=== PATIENT | female | born 1975 | race Caucasian/White ===

== ENCOUNTER 2017-02-14 09:10 | Emergency (ER) | payer OTHER ==
[~2017-02-14] VITALS: Ht 160 cm; Wt 68.2 kg
[~2017-02-14 09:10] MED LIST: BENADRYL50 MG PO; CELEXA20 MG PO; CIPRO500 MG PO; CITALOPRAM HBR40 MG PO; FLEXERIL5 MG PO; GLUCOVANCE 51 TABLET PO; KEFLEX; LANTUS 10100 UNITS/ SC; LEVEMIR FL100 UNIT/1 SC; MOBIC7.5 MG PO; NAPROSYN500 MG PO; PREDNISONE20 MG PO; TORADOL10 MG PO; ULTRAM50 MG PO; ZANTAC150 MG PO
[2017-02-14 10:05] LABS: HEMATOCRIT 46.6 % (36.0-46.0); MCH 30.2 PG (29.0-34.0); MCHC 33.5 G/DL (30.0-36.0); MCV 90.1 FL (83-99); MEAN PLAT.VOLUME 9.5 uM^3 (9.5-12.4); PLATELET COUNT 291 K/uL (156-360); RBC DIS.WIDTH-CV 13.5 % (11.8-14.6); RBC DIS.WIDTH-SD 45.4 % (39-53); RED BLOOD COUNT 5.17 M/uL (3.80-5.20); WHITE BLOOD COUNT 7.7 K/uL (4.1-10.2)
[2017-02-14 10:14] LABS: CHLORIDE 100 mEq/L (99-109); POTASSIUM 4.6 mEq/L (3.7-5.4); SODIUM 134 mEq/L (136-147)
[2017-02-14 10:17] LABS: ANION GAP 13 MEQ/L (2-14)
[2017-02-14 10:19] LABS: GFR ESTIMATE (CALCULATED) > 59 mL/min/
[2017-02-14 10:20] LABS: UREA NITROGEN (BUN) 12 mg/dL (9-23)
[2017-02-14 10:27] LABS: QUANTITATIVE HCG < 4.0 MIU/ML
[2017-02-14 10:29] LABS: GLUCOSE 456 mg/dL (70-99)
[2017-02-14] MEDS ORDERED: PROVERA,CYCRIN10 MG PO (11:09)
[2017-02-14 11:40] VITALS: BP 132/86
[2017-02-18] MEDS ORDERED: LEVEMIR100 UNIT/2 SC (12:12)
[2017-02-18] MEDS ORDERED: CELEXA40 MG PO (12:14)
== END 2017-02-14 11:41 | disposition home or self-care (01) ==
LOC: EME 09:10
PROVIDERS: Emergency Medicine
DX: N93.9 Abnormal uterine and vaginal bleeding, unspecified (principal); E11.9 Type 2 diabetes mellitus without complications; Z87.442 Personal history of urinary calculi; F17.200 Nicotine dependence, unspecified, uncomplicated
CPT/HCPCS: 80048; 84702; 85027; 86900; 86901; 99281; 99283

== ENCOUNTER → 2017-02-18 | Outpatient (CLI) | payer OTHER ==
[~2017-02-18] MED LIST changes: +CELEXA40 MG PO; +LEVEMIR100 UNIT/2 SC; +PROVERA,CYCRIN10 MG PO
== END | disposition home or self-care (01) ==
LOC: CDC
DX: Z01.810 Encounter for preprocedural cardiovascular examination (principal); R94.31 Abnormal electrocardiogram [ECG] [EKG]
CPT/HCPCS: 93000

== ENCOUNTER 2017-02-20 11:36 | Day surgery (SDC) | payer OTHER ==
[~2017-02-20] VITALS: Ht 160 cm; Wt 68.9 kg
[2017-02-20 12:00] VITALS: BP 119/70
[2017-02-20 12:36] LABS: CHLORIDE 104 mEq/L (99-109); POTASSIUM 4.3 mEq/L (3.7-5.4); SODIUM 136 mEq/L (136-147)
[2017-02-20 12:37] LABS: GLUCOSE 270 mg/dL (70-99)
[2017-02-20 12:39] LABS: ANION GAP 9 MEQ/L (2-14)
[2017-02-20 12:41] LABS: GFR ESTIMATE (CALCULATED) > 59 mL/min/
[2017-02-20 12:42] LABS: UREA NITROGEN (BUN) 13 mg/dL (9-23)
[2017-02-20 12:52] LABS: QUANTITATIVE HCG < 4.0 MIU/ML
[2017-02-20 13:49] LABS: POINT-OF-CARE METER ID UU13113675
[2017-02-20 14:12] VITALS: BP 136/80
[2017-02-20 15:08] VITALS: BP 109/62
== END 2017-02-20 15:15 | disposition home or self-care (01) ==
LOC: SDC
PROVIDERS: Obstetrics & Gynecology Gynecology
PROC: 0UDB8ZX Extraction of Endometrium, Via Natural or Artificial Opening Endoscopic, Diagnostic (ICD-10-PCS; principal; 2017-02-20)
DX: N93.8 Other specified abnormal uterine and vaginal bleeding (principal); N92.0 Excessive and frequent menstruation with regular cycle; N85.4 Malposition of uterus; E11.9 Type 2 diabetes mellitus without complications; F17.200 Nicotine dependence, unspecified, uncomplicated; Z79.4 Long term (current) use of insulin; Z82.49 Family history of ischemic heart disease and other diseases of the circulatory system; Z80.3 Family history of malignant neoplasm of breast; Z83.3 Family history of diabetes mellitus; Z88.6 Allergy status to analgesic agent; Z88.8 Allergy status to other drugs, medicaments and biological substances; Z88.2 Allergy status to sulfonamides
CPT/HCPCS: 80048; 82948; 84702; 88305; J0131; J0330; J2250; J2405; J3010

== ENCOUNTER 2017-04-06 05:50 | Emergency (ER) | payer OTHER ==
[~2017-04-06] VITALS: Ht 160 cm; Wt 73.2 kg
[2017-04-06 06:16] LABS: HEMATOCRIT 40.4 % (36.0-46.0); MCH 29.8 PG (29.0-34.0); MCHC 33.2 G/DL (30.0-36.0); MCV 89.8 FL (83-99); MEAN PLAT.VOLUME 8.9 uM^3 (9.5-12.4); PLATELET COUNT 257 K/uL (156-360); RBC DIS.WIDTH-CV 14.5 % (11.8-14.6); RBC DIS.WIDTH-SD 47.4 % (39-53); WHITE BLOOD COUNT 10.1 K/uL (4.1-10.2)
[2017-04-06 06:27] LABS: CHLORIDE 107 mEq/L (99-109)
[2017-04-06 06:28] LABS: SODIUM 138 mEq/L (136-147)
[2017-04-06 06:29] LABS: GLUCOSE 238 mg/dL (70-99)
[2017-04-06 06:31] LABS: ANION GAP 10 MEQ/L (2-14)
[2017-04-06 06:33] LABS: GFR ESTIMATE (CALCULATED) > 59 mL/min/
[2017-04-06 06:34] LABS: UREA NITROGEN (BUN) 13 mg/dL (9-23)
[2017-04-06 06:43] LABS: ADD MIUA? YES; BILIRUBIN NEGATIVE; BLOOD LARGE; COLOR AMBER ((YELLOW)); GLUCOSE (STRIP) NEGATIVE; KETONES NEGATIVE; LEUKOCYTES LARGE; NITRITE POSITIVE; PROTEIN (STRIP) 100; SPECIFIC GRAVITY 1.019 (1.000-1.030); UROBILINOGEN 0.2 MG/DL (0.2-1.0)
[2017-04-06] MEDS ORDERED: PERCOCET 5/31 TABLET PO (07:21)
[2017-04-06] MEDS ORDERED: ZOFRAN ODT4 MG PO (07:21)
[2017-04-06] MEDS ORDERED: CIPRO500 MG PO (07:21)
[2017-04-06 08:00] LABS: BACTERIA 4+ /HPF; EPITHELIAL CELLS 1+ /HPF; MUCUS NONE SEEN /LPF; RED BLOOD CELLS 40-50 /HPF (0-5); UCUL ADDED? YES; WHITE BLOOD CELLS TNTC /HPF (0-5)
[2017-04-06 08:59] VITALS: BP 125/79
== END 2017-04-06 09:01 | disposition home or self-care (01) ==
LOC: EME 05:50
DX: N20.1 Calculus of ureter (principal); N39.0 Urinary tract infection, site not specified; E11.9 Type 2 diabetes mellitus without complications; Z87.442 Personal history of urinary calculi; F17.200 Nicotine dependence, unspecified, uncomplicated
CPT/HCPCS: 74176; 80048; 81003; 85027; 87077; 87086; 87186; 99281; 99285; J0696; J2270; J2405; J7030; J7050

== ENCOUNTER 2017-04-12 21:06 | Emergency (ER) | payer OTHER ==
[~2017-04-12] VITALS: Ht 160 cm; Wt 72.1 kg
[~2017-04-12 21:06] MED LIST changes: +PERCOCET 5/31 TABLET PO; +ZOFRAN ODT4 MG PO
[2017-04-12 21:56] LABS: ADD MIUA? YES; BILIRUBIN NEGATIVE; BLOOD LARGE; COLOR YELLOW ((YELLOW)); GLUCOSE (STRIP) >=500; KETONES NEGATIVE; LEUKOCYTES TRACE; NITRITE NEGATIVE; PROTEIN (STRIP) 30; SPECIFIC GRAVITY 1.027 (1.000-1.030); UROBILINOGEN 0.2 MG/DL (0.2-1.0)
[2017-04-12 22:08] LABS: HEMATOCRIT 41.9 % (36.0-46.0); MCH 29.8 PG (29.0-34.0); MCHC 33.2 G/DL (30.0-36.0); MCV 89.9 FL (83-99); PLATELET COUNT 282 K/uL (156-360); RBC DIS.WIDTH-CV 14.9 % (11.8-14.6); RBC DIS.WIDTH-SD 48.6 % (39-53); RED BLOOD COUNT 4.66 M/uL (3.80-5.20); WHITE BLOOD COUNT 8.9 K/uL (4.1-10.2)
[2017-04-12 22:19] LABS: CHLORIDE 106 mEq/L (99-109); POTASSIUM 4.3 mEq/L (3.7-5.4); SODIUM 136 mEq/L (136-147)
[2017-04-12 22:21] LABS: GLUCOSE 275 mg/dL (70-99)
[2017-04-12 22:22] LABS: ANION GAP 11 MEQ/L (2-14)
[2017-04-12 22:23] LABS: TOTAL BILIRUBIN 0.2 mg/dL (0.0-1.0)
[2017-04-12 22:24] LABS: ALKALINE PHOSPHATASE 75 IU/L (3-129)
[2017-04-12 22:25] LABS: GFR ESTIMATE (CALCULATED) > 59 mL/min/
[2017-04-12 22:26] LABS: UREA NITROGEN (BUN) 16 mg/dL (9-23)
[2017-04-12 22:32] LABS: BACTERIA NONE SEEN /HPF; EPITHELIAL CELLS RARE /HPF; MUCUS TRACE /LPF; RED BLOOD CELLS TNTC /HPF (0-5); UCUL ADDED? NO; WHITE BLOOD CELLS 15-20 /HPF (0-5)
[2017-04-12 22:36] LABS: QUANTITATIVE HCG < 4.0 MIU/ML
[2017-04-13 00:38] LABS: LIPASE 262 U/L (1.0-51.0)
[2017-04-13] MEDS ORDERED: INDOCIN50 MG PO (01:17)
[2017-04-13 01:32] VITALS: BP 140/77
== END 2017-04-13 01:33 | disposition home or self-care (01) ==
LOC: EME 21:06 → RME 21:06
DX: R10.30 Lower abdominal pain, unspecified (principal); N20.1 Calculus of ureter; E11.9 Type 2 diabetes mellitus without complications; Z98.890 Other specified postprocedural states; Z87.442 Personal history of urinary calculi; Z91.040 Latex allergy status; Z88.2 Allergy status to sulfonamides; F17.200 Nicotine dependence, unspecified, uncomplicated
CPT/HCPCS: 80053; 81003; 83690; 84702; 85027; 99281; 99284

== ENCOUNTER 2017-04-29 10:55 | Day surgery (SDC) | payer OTHER ==
[~2017-04-29] VITALS: Ht 160 cm; Wt 73.9 kg
[~2017-04-29 10:55] MED LIST changes: +INDOCIN50 MG PO; +MEGACE40 MG PO; +METFORMIN HCL500 M4 PO
[2017-04-29 11:28] VITALS: BP 125/75
[2017-04-29 11:30] LABS: POINT-OF-CARE METER ID UU14174212
[2017-04-29] MEDS ORDERED: HUMALOG100 UNIT/2 SC (11:37)
[2017-04-29] MEDS ORDERED: CIPRO500 MG PO (11:37)
[2017-04-29] MEDS ORDERED: PROMETHAZINE HC25 M1 PO (11:38)
[2017-04-29] MEDS ORDERED: FLOMAX0.4 MG PO (11:39)
[2017-04-29 14:30] LABS: POINT-OF-CARE METER ID UU13113675
[2017-04-29 14:55] VITALS: BP 150/70
[2017-04-29 15:25] VITALS: BP 150/70
[2017-05-04 11:58] LABS: INTERNAL CONTROL VALID? YES
== END 2017-04-29 15:35 | disposition home or self-care (01) ==
LOC: SDC 10:55
PROVIDERS: Urology
DX: N20.1 Calculus of ureter (principal); Z87.442 Personal history of urinary calculi; E10.9 Type 1 diabetes mellitus without complications; Z79.4 Long term (current) use of insulin; Z79.84 Long term (current) use of oral hypoglycemic drugs; Z87.440 Personal history of urinary (tract) infections; F17.210 Nicotine dependence, cigarettes, uncomplicated; Z82.49 Family history of ischemic heart disease and other diseases of the circulatory system; Z83.3 Family history of diabetes mellitus; Z84.1 Family history of disorders of kidney and ureter; Z80.9 Family history of malignant neoplasm, unspecified; Z88.2 Allergy status to sulfonamides; Z91.09 Other allergy status, other than to drugs and biological substances; Z91.040 Latex allergy status
CPT/HCPCS: 81003; 82365 90; 82948; 84703; C1876; J0690; J1580; J1885; J2250; J2405; J3010

== ENCOUNTER 2017-07-16 10:21 | Emergency (ER) | payer OTHER ==
[~2017-07-16] VITALS: Ht 165.1 cm; Wt 76.3 kg
[~2017-07-16 10:21] MED LIST changes: +FLOMAX0.4 MG PO; +HUMALOG100 UNIT/2 SC; +PROMETHAZINE HC25 M1 PO
[2017-07-16 11:45] LABS: HEMATOCRIT 44.3 % (36.0-46.0); MCHC 33.4 G/DL (30.0-36.0); MCV 89.9 FL (83-99); MEAN PLAT.VOLUME 8.7 uM^3 (9.5-12.4); PLATELET COUNT 240 K/uL (156-360); RBC DIS.WIDTH-CV 13.9 % (11.8-14.6); RBC DIS.WIDTH-SD 45.8 % (39-53); RED BLOOD COUNT 4.93 M/uL (3.80-5.20); WHITE BLOOD COUNT 9.1 K/uL (4.1-10.2)
[2017-07-16 11:59] LABS: CHLORIDE 105 mEq/L (99-109); POTASSIUM 4.4 mEq/L (3.7-5.4); SODIUM 140 mEq/L (136-147)
[2017-07-16 12:01] LABS: GLUCOSE 93 mg/dL (70-99)
[2017-07-16 12:03] LABS: ANION GAP 9 MEQ/L (2-14)
[2017-07-16 12:05] LABS: GFR ESTIMATE (CALCULATED) > 59 mL/min/
[2017-07-16 12:06] LABS: TROP-I INTERPRETATION NEGATIVE; TROPONIN-I 0.01 ng/mL (0.0-0.30); UREA NITROGEN (BUN) 16 mg/dL (9-23)
[2017-07-16 14:39] LABS: TROP-I INTERPRETATION NEGATIVE; TROPONIN-I 0.01 ng/mL (0.0-0.30)
[2017-07-16 15:10] VITALS: BP 123/69
== END 2017-07-16 15:11 | disposition home or self-care (01) ==
LOC: EME 10:21
PROVIDERS: Physician Assistant
DX: R07.89 Other chest pain (principal); R68.84 Jaw pain; E11.9 Type 2 diabetes mellitus without complications; Z79.4 Long term (current) use of insulin; F17.200 Nicotine dependence, unspecified, uncomplicated
CPT/HCPCS: 71020; 80048; 84484; 85027; 93005; 99281; 99284

== ENCOUNTER 2017-07-21 06:17 | Inpatient (IN) | payer OTHER ==
[~2017-07-21] VITALS: Ht 160 cm; Wt 77.1 kg
[2017-07-21 07:07] LABS: BASOPHIL COUNT 0.1 K/uL (0-0.1); EOSINOPHIL (%) 1.7 % (0-5); EOSINOPHIL COUNT 0.2 K/uL (0-0.3); HEMATOCRIT 44.7 % (36.0-46.0); IMMATURE GRANULOCYTE (%) 0.6 % (0.0-0.7); IMMATURE GRANULOCYTE COUNT 0.1 K/uL; INSTRUMENT ABS NEUTROPHIL CT 5.7 K/uL; LYMPHOCYTE COUNT 2.5 K/uL (1.0-2.8); MCH 29.7 PG (29.0-34.0); MCHC 32.7 G/DL (30.0-36.0); MONOCYTE (%) 5.5 % (3-12); MONOCYTE COUNT 0.5 K/uL (0-0.8); NEUTROPHIL (%) 63.8 % (45-76); NEUTROPHIL COUNT 5.7 K/uL (1.8-6.4); PLATELET COUNT 242 K/uL (156-360); RBC DIS.WIDTH-CV 13.9 % (11.8-14.6); RED BLOOD COUNT 4.91 M/uL (3.80-5.20)
[2017-07-21 07:16] LABS: PROTHROMBIN TIME 10.4 SEC (10.2-12.9)
[2017-07-21 07:18] LABS: PTT 30.4 SEC (25-37)
[2017-07-21 07:23] LABS: D-DIMER ELISA < 150.00 ng/mLDDU (<230)
[2017-07-21 07:25] LABS: ANION GAP 7 MEQ/L (2-14); CHLORIDE 101 MEQ/L (99-109); POTASSIUM 4.5 MEQ/L (3.7-5.4); SAMPLE HEMOLYSIS CHECK 0; SAMPLE ICTERIC CHECK 0; SAMPLE LIPEMIA CHECK 0; SODIUM 135 MEQ/L (136-147)
[2017-07-21 07:30] LABS: GFR ESTIMATE (CALCULATED) > 59 mL/min/; GLUCOSE 152 mg/dL (70-99); UREA NITROGEN (BUN) 15 mg/dL (9-23)
[2017-07-21 07:49] LABS: TROP-I INTERPRETATION NEGATIVE; TROPONIN-I 0.04 ng/mL (0.0-0.30)
[2017-07-21] MEDS ORDERED: LANTUS 3 M100 UNITS1 SC (08:45)
[2017-07-21] MEDS ORDERED: CELEXA40 MG PO (08:45)
[2017-07-21] MEDS ORDERED: RELI PO (08:46)
[2017-07-21] MEDS ORDERED: VICTOZA0.6 MG/0.1 SC (08:46)
[2017-07-21 09:34] VITALS: BP 98/48
[2017-07-21 09:55] LABS: HDL CHOLESTEROL 34 MG/DL (Desirable>=50); LDL CHOLESTEROL 121 mg/dL (Desirable<100); NON-HDL CHOLESTEROL 146 mg/dL (Desirable<160); TOTAL CHOLESTEROL 180 mg/dL (Desirable<200); TRIGLYCERIDES 126 MG/DL (Normal: <150)
[2017-07-21 11:41] LABS: POINT-OF-CARE METER ID UU14162513
[2017-07-21 11:58] VITALS: BP 90/52
[2017-07-21 14:25] LABS: TROPONIN-I 1.22 ng/mL (0.0-0.30)
[2017-07-21 14:27] LABS: TROP-I INTERPRETATION POSITIVE
[2017-07-21 16:05] VITALS: BP 101/57
[2017-07-21 19:00] VITALS: BP 101/59
[2017-07-21 20:10] LABS: TROP-I INTERPRETATION POSITIVE; TROPONIN-I 3.36 ng/mL (0.0-0.30)
[2017-07-21 22:16] LABS: PROTHROMBIN TIME 10.7 SEC (10.2-12.9)
[2017-07-22 01:37] VITALS: BP 110/57
[2017-07-22 04:30] VITALS: BP 124/70
[2017-07-22 05:10] LABS: HEMATOCRIT 41.7 % (36.0-46.0); MCH 30.3 PG (29.0-34.0); MCHC 32.9 G/DL (30.0-36.0); MCV 92.3 FL (83-99); MEAN PLAT.VOLUME 9.1 uM^3 (9.5-12.4); PLATELET COUNT 225 K/uL (156-360); RBC DIS.WIDTH-SD 47.7 % (39-53); RED BLOOD COUNT 4.52 M/uL (3.80-5.20)
[2017-07-22 08:48] VITALS: BP 98/52
[2017-07-22 17:45] LABS: POINT-OF-CARE METER ID UU13113819
[2017-07-22 18:14] VITALS: BP 114/65
[2017-07-22 18:54] VITALS: BP 144/66
[2017-07-22 21:12] LABS: POINT-OF-CARE METER ID UU13113698
[2017-07-22 22:26] VITALS: BP 99/55
[2017-07-23 03:35] VITALS: BP 101/56
[2017-07-23 07:27] VITALS: BP 122/68
[2017-07-23] MEDS ORDERED: NICOTINE PATCH1 EAC1 TD (07:55)
[2017-07-23] MEDS ORDERED: BRILINTA90 MG PO (07:55)
[2017-07-23] MEDS ORDERED: LOPRESSOR25 MG PO (07:55)
[2017-07-23] MEDS ORDERED: ASPIR-LOW81 MG PO (07:55)
[2017-07-23] MEDS ORDERED: ATORVASTATIN CA40 MG PO (07:55)
== END 2017-07-23 11:18 | disposition home or self-care (01) | DRG 282 ==
LOC: EME 06:17 → EDOF 08:10 → ENRESERV 08:15 → 5WEST 09:17 → 4EAST 14:57 → ENRESERV 19:02 → 4EAST 07-22 01:32 → ENPENDDIS 07-23 → 4EAST 07-23 11:18
PROVIDERS: Emergency Medicine; Internal Medicine; Nurse Practitioner Adult Health; Pediatrics
DX: I21.4 Non-ST elevation (NSTEMI) myocardial infarction (principal); I25.10 Atherosclerotic heart disease of native coronary artery without angina pectoris; R20.2 Paresthesia of skin; E11.9 Type 2 diabetes mellitus without complications; F32.9 Major depressive disorder, single episode, unspecified; F41.9 Anxiety disorder, unspecified; F17.210 Nicotine dependence, cigarettes, uncomplicated; Z79.4 Long term (current) use of insulin
CPT/HCPCS: 71010; 80048; 80061; 82948; 84484; 85025; 85027; 85347; 85379; 85610; 85730; 93005; 99281; 99285; C1769; C1887; J0153; J1644; J1650; J1815; J2250; J2270; J3010; J7030; J7040; J7050

== ENCOUNTER 2017-09-09 23:30 | Emergency (ER) | payer OTHER ==
[~2017-09-09] VITALS: Ht 160 cm; Wt 78.1 kg
[~2017-09-09 23:30] MED LIST changes: +ASPIR-LOW81 MG PO; +ATORVASTATIN CA40 MG PO; +BRILINTA90 MG PO; +LANTUS 3 M100 UNITS1 SC; +LOPRESSOR25 MG PO; +NICOTINE PATCH1 EAC1 TD; +RELI PO; +VICTOZA0.6 MG/0.1 SC
[2017-09-09 23:55] LABS: ADD MIUA? YES; BILIRUBIN NEGATIVE; BLOOD NEGATIVE; COLOR YELLOW ((YELLOW)); GLUCOSE (STRIP) >=500; KETONES NEGATIVE; LEUKOCYTES NEGATIVE; NITRITE NEGATIVE; PROTEIN (STRIP) NEGATIVE; SPECIFIC GRAVITY 1.022 (1.000-1.030)
[2017-09-10] LABS: BACTERIA RARE /HPF; EPITHELIAL CELLS 3+ /HPF; MUCUS TRACE /LPF; UCUL ADDED? NO; WHITE BLOOD CELLS 0-5 /HPF (0-5)
[2017-09-10 00:03] LABS: HEMATOCRIT 39.8 % (36.0-46.0); MCH 30.2 PG (29.0-34.0); MCHC 33.4 G/DL (30.0-36.0); MCV 90.2 FL (83-99); MEAN PLAT.VOLUME 9.2 uM^3 (9.5-12.4); PLATELET COUNT 243 K/uL (156-360); RBC DIS.WIDTH-SD 49.8 % (39-53); RED BLOOD COUNT 4.41 M/uL (3.80-5.20); WHITE BLOOD COUNT 10.7 K/uL (4.1-10.2)
[2017-09-10 00:10] LABS: CHLORIDE 101 mEq/L (99-109); POTASSIUM 3.5 mEq/L (3.7-5.4); SODIUM 137 mEq/L (136-147)
[2017-09-10 00:13] LABS: GLUCOSE 291 mg/dL (70-99)
[2017-09-10 00:14] LABS: ANION GAP 8 MEQ/L (2-14)
[2017-09-10 00:15] LABS: TOTAL BILIRUBIN 0.3 mg/dL (0.0-1.0)
[2017-09-10 00:16] LABS: ALKALINE PHOSPHATASE 120 IU/L (3-129); GFR ESTIMATE (CALCULATED) > 59 mL/min/
[2017-09-10 00:17] LABS: UREA NITROGEN (BUN) 14 mg/dL (9-23)
[2017-09-10 00:20] LABS: LIPASE 69 U/L (1.0-51.0)
[2017-09-10 00:27] LABS: QUANTITATIVE HCG < 4.0 MIU/ML
[2017-09-10] MEDS ORDERED: NORCO 5/3251 TABLET PO (02:25)
[2017-09-10] MEDS ORDERED: ZOFRAN4 MG PO (02:25)
[2017-09-10 04:52] VITALS: BP 122/60
== END 2017-09-10 04:49 | disposition home or self-care (01) ==
LOC: EME 23:30
DX: R10.11 Right upper quadrant pain (principal); E11.65 Type 2 diabetes mellitus with hyperglycemia; Z79.4 Long term (current) use of insulin; F41.9 Anxiety disorder, unspecified; R11.0 Nausea; R19.7 Diarrhea, unspecified; Z87.442 Personal history of urinary calculi; F17.200 Nicotine dependence, unspecified, uncomplicated
CPT/HCPCS: 76705; 80053; 81003; 83690; 84702; 85027; 93005; 99281; 99284

== ENCOUNTER 2017-10-05 07:06 | Day surgery (SDC) | payer OTHER ==
[~2017-10-05] VITALS: Ht 160 cm; Wt 78.0 kg
[~2017-10-05 07:06] MED LIST changes: +NORCO 5/3251 TABLET PO; +PRILOSEC20 MG PO; +ZOFRAN4 MG PO
[2017-10-05 08:35] VITALS: BP 109/60
[2017-10-05 08:41] LABS: POINT-OF-CARE METER ID UU14174212
[2017-10-05] MEDS ORDERED: IBUPROFEN800 MG PO (09:20)
[2017-10-05] MEDS ORDERED: ENDOCET 5-3251 EACH PO (09:20)
[2017-10-05 12:14] LABS: POINT-OF-CARE METER ID UU13113675
[2017-10-05 13:10] VITALS: BP 128/62
[2017-10-05 14:13] VITALS: BP 135/69
[2017-10-05 16:20] VITALS: BP 152/75
== END 2017-10-05 16:40 | disposition home or self-care (01) ==
LOC: SDC 07:06
PROVIDERS: Obstetrics & Gynecology Gynecology
DX: N92.1 Excessive and frequent menstruation with irregular cycle (principal); N72 Inflammatory disease of cervix uteri; N80.0 Endometriosis of uterus; R10.2 Pelvic and perineal pain; Z30.432 Encounter for removal of intrauterine contraceptive device; E11.9 Type 2 diabetes mellitus without complications; Z79.4 Long term (current) use of insulin; I25.10 Atherosclerotic heart disease of native coronary artery without angina pectoris; I25.2 Old myocardial infarction; Z79.82 Long term (current) use of aspirin; F17.200 Nicotine dependence, unspecified, uncomplicated; F43.23 Adjustment disorder with mixed anxiety and depressed mood
CPT/HCPCS: 82948; 85730; 86850; 86900; 86901; 88307; J0131; J0690; J1100; J1170; J1885; J2250; J2405; J2710; J2765; J3010

== ENCOUNTER 2018-03-07 11:40 | Emergency (ER) | payer OTHER ==
[~2018-03-07] VITALS: Ht 160 cm; Wt 78.3 kg
[~2018-03-07 11:40] MED LIST changes: +ENDOCET 5-3251 EACH PO; +IBUPROFEN800 MG PO
[2018-03-07] MEDS ORDERED: ULTRAM50 MG PO (13:07)
[2018-03-07 13:24] VITALS: BP 150/94
== END 2018-03-07 13:26 | disposition home or self-care (01) ==
LOC: EME 11:40
DX: K08.89 Other specified disorders of teeth and supporting structures (principal); I10 Essential (primary) hypertension; E78.5 Hyperlipidemia, unspecified; E11.9 Type 2 diabetes mellitus without complications; F41.9 Anxiety disorder, unspecified; F17.200 Nicotine dependence, unspecified, uncomplicated; Z79.4 Long term (current) use of insulin; Z90.710 Acquired absence of both cervix and uterus; Z88.2 Allergy status to sulfonamides; Z91.040 Latex allergy status
CPT/HCPCS: 99281; 99283